=== PATIENT | female | born 1985 | race Caucasian/White ===

== ENCOUNTER 2016-11-08 17:30 | Emergency (ER) | payer MEDICAID ==
[~2016-11-08] VITALS: Ht 154.9 cm; Wt 65.0 kg
[~2016-11-08 17:30] MED LIST: LEVO1IUD4; SERT-129 PO
[2016-11-08 17:32] VITALS: BP 152/89; PULSE 74; RESP 14; TEMP 98; O2SAT 97
--- NOTE | 2016-11-08 17:50 | PD ---
Physical Exam Date Seen by Provider: Nov 08, 2016 Time Seen by Provider: 17:47 Narrative 31 YOWF C/O VAG D/C AND L FLANK PAIN/SWOLLEN. ? PROBLEM WITH HER IUD VSS. AWAITING BED PLACEMENT Data Data Last Documented VS Vital Signs Date Time Temp Pulse Resp B/P Pulse Ox O2 Delivery O2 Flow Rate FiO2 11/08/16 17:32 98.0 74 14 152/89 97 Orders Urinalysis - C+S If Indicated (11/08/16 17:44) Ed Urine Pregnancytest Poc (11/08/16 17:44) [facility] Medical Record Reviewed: Yes Supervised Visit with HI: Yes Jcarlos Craven Nov 08, 2016 17:50
[2016-11-08 18:13] LABS: BACTERIA, URINE RARE /hpf; BLOOD, URINE NEG (NEG); COMMENT (UR) CULT NOT INDICATED; CULTURE IF INDICATED CULT NOT INDICATED; GLUCOSE,URINE NEG (NEG); KETONE, URINE NEG (NEG); NITRITE,URINE NEG (NEG); SQUAMOUS EPITHELIAL CELL URINE 4 /hpf (0-5); URINE COLOR LIGHT-YELLOW (YELLW/STRAW)
[2016-11-08] MEDS ORDERED: ACETAMINOPHEN/HYDROcodone 325 MG/5 MG TAB PO ONE (19:00)
[2016-11-08] MEDS ORDERED: CARDCAP2 PO (19:10)
--- NOTE | 2016-11-08 19:45 | RADRPT ---
EXAM DATE/TIME: 11/08/2016 19:21 [place] COMPARISON: No previous studies available for comparison. INDICATIONS : Left flank pain starting today; radiating to lower back. ORAL CONTRAST: No oral contrast ingested. RADIATION DOSE: 6.70 CTDIvol (mGy) MEDICAL HISTORY : Renal calculi. Renal infection. SURGICAL HISTORY : section. ENCOUNTER: Initial ACUITY: 1 day PAIN SCALE: 6/10 LOCATION: Left flank Abdomen/pelvis TECHNIQUE: Volumetric scanning of the abdomen and pelvis was performed. Using automated exposure control and ad justment of the mA and/or kV according to patient size, radiation dose was kept as low as reasonably achievable to obtain optimal diagnostic quality images. FINDINGS: The kidneys are symmetric in size. No stones or hydronephrosis seen on the right side. There is a s olitary nonobstructing stone lower pole calyx on the left side measuring 2 mm. No calcifications helio ng the course of either ureter. Urinary bladder margins are smooth. No calcifications within the bon men of urinary bladder. No dilated loops of small large bowel. No calcified gallstones. There is, however, a 1.3 cm rounded lucency within the lumen of the gallbladder which may represent a noncalcified gallstone. T-shaped IUD in place. No evidence of free fluid in the pelvis. Inguinal region is unremarkable. The visual ized lower lungs are clear. Osseous structures are grossly intact. CONCLUSION: 1. 2 mm nonobstructing calcified stone lower pole of the left side. 2. 1.3 cm noncalcified round lesion within the lumen of the gallbladder may represent a noncalcified stone. Yan Benson MD on November 08, 2016 at 19:40 Board Certified Radiologist. This report was verified electronically.
--- NOTE | 2016-11-08 19:54 | PD ---
HPI Chief Complaint: Income Tax Consultant Problem/Complaint Time Seen by Provider: 19:50 Travel History International Travel<30 days: No Contact w/Intl Traveler<30days: No Traveled to known affect area: No History of Present Illness HPI 31-year-old female that presents to the ED for evaluation of left flank pain and possible vaginal issue. Per patient she has an IUD. Per patient she has had no issues other than some discharge since having the IUD and today she woke up with left flank pain. Per patient the pain is mostly in the left lower quadrant of the abdomen as well as to the flank on the kidneys. She does have a history of kidney stones. She states that she be having the chills for the past couple of days. Denies any bleeding. Per patient this possibility of but she is not sure. She states that she is not sure it is related to the IUD, cyst, ectopic , kidney stone or urinary tract infection. On examination she is somewhat anxious. Pain is 5 out of 10. Nothing makes it better or worse. Per patient he comes and goes. She denies previous STD. She has not seen anybody for this. She has no allergies to medication. She denies any nausea or vomiting. No urinary or bowel movement issues. PFSH Past Medical History Hx Anticoagulant Therapy: No Bipolar Disorder: Yes Depression: Yes Cardiovascular Problems: No Chemotherapy: No Cerebrovascular Accident: No Diabetes: No Diminished Hearing: No Gestational Age in Weeks: 24 Headaches: Yes Kidney Stones: Yes Psychiatric: Yes (BIPOLAR, PTSD, MANIC DEPRESSIVE DO) Respiratory: No Migraines: Yes ?: Unknown Menopausal: No : 4 Para: 3 : 1 Past Surgical History Section: Yes Gynecologic Surgery: Yes ( X 2) Social History Alcohol Use: No Tobacco Use: Yes (smokes a quarter of a pack per day) Substance Use: No (OPIATES; COCAINE (LAST USED 03/31/12)) Allergies-Medications (Allergen,Severity, Reaction): Coded Allergies: No Known Allergies (Unverified , 11/08/16) Reported Meds & Prescriptions Reported Meds & Active Scripts Active Metronidazole 500 Mg Tab 500 Mg PO BID [address] (Diclofenac Sodium) 75 Mg Tabdr 75 Mg PO BID PRN Sertraline (Sertraline HCl) 100 Mg Tab 100 Mg PO DAILY Reported Daily Multivitamin (Multiple Vitamins W/ Minerals) 1 Cap Cap 1 Tab PO DAILY Kyleena (Levonorgestrel (Iud)) 19.5 Mg Iud 1 Review of Systems Except as stated in HPI: all other systems reviewed are Neg Physical Exam Narrative GENERAL: SKIN: Warm and dry. HEAD: Atraumatic. Normocephalic. EYES: Pupils equal and round. No scleral icterus. No injection or drainage. ENT: No nasal bleeding or discharge. Mucous membranes pink and moist. Tongue is midline. No uvula deviation. NECK: Trachea midline. No JVD. CARDIOVASCULAR: Regular rate and rhythm. No murmurs, S3, S4. RESPIRATORY: No accessory muscle use. Clear to auscultation. Breath sounds equal bilaterally. GASTROINTESTINAL: Abdomen soft, non-tender, nondistended. Hepatic and splenic margins not palpable. MUSCULOSKELETAL: Extremities without clubbing, cyanosis, or edema. No obvious deformities. Full range of motion of the upper and lower extremities bilaterally. 2+ pulses bilaterally. NEUROLOGICAL: Awake and alert. No obvious cranial nerve deficits. Motor grossly within normal limits. Five out of 5 muscle strength in the arms and legs. Normal speech. PSYCHIATRIC: Appropriate mood and affect; insight and judgment normal. Data Data Last Documented VS Vital Signs Date Time Temp Pulse Resp B/P Pulse Ox O2 Delivery O2 Flow Rate FiO2 11/08/16 17:32 98.0 74 14 152/89 97 Orders Urinalysis - C+S If Indicated (11/08/16 17:44) Ed Urine Pregnancytest Poc (11/08/16 17:44) Gc And Chlamydia Pcr (11/08/16 18:48) Wet Prep Profile (11/08/16 18:48) Ct Abd/Pel W/O Iv Contrast (11/08/16 ) Acetamin-Hydrocod 325-5 Mg ([place] 5-325 (11/08/16 19:00) Metronidazole (Flagyl) (11/08/16 21:00) Labs Laboratory Tests Test 11/08/16 11/08/16 17:45 20:17 Urine Color LIGHT-YELLOW Urine Turbidity HAZY Urine pH 7.0 Urine Specific [place] 1.005 Urine Protein NEG mg/dL Urine Glucose (UA) NEG mg/dL Urine Ketones NEG mg/dL Urine Occult Blood NEG Urine Nitrite NEG Urine Bilirubin NEG Urine Urobilinogen LESS THAN 2.0 MG/DL Urine Leukocyte Esterase TRACE Urine RBC 2 /hpf Urine WBC 4 /hpf Urine Squamous Epithelial 4 /hpf Cells Urine Bacteria RARE /hpf Microscopic Urinalysis Comment CULT NOT INDICATED Clue Cells (Wet Prep) PRESENT Vaginal Trichomonas (Wet Prep) NONE SEEN Vaginal Yeast (Wet Prep) NONE SEEN MDM Medical Decision Making Medical Screen Exam Complete: Yes Emergency Medical Condition: Yes Medical Record Reviewed: Yes Interpretation(s) Last Impressions Abdomen/Pelvis CT 11/08/16 0000 Signed Impressions: Service Date/Time: Tuesday, November 08, 2016 19:21 - CONCLUSION: 1. 2 mm nonobstructing calcified stone lower pole of the left side. 2. 1.3 cm noncalcified round lesion within the lumen of the gallbladder may represent a noncalcified stone. Yan Benson MD UA negative Wet prep positive for clue cells Differential Diagnosis versus flank pain versus STD versus vaginitis versus vaginal discharge versus UTI versus kidney stone Narrative Course 31-year-old female that presents to the ED for evaluation of left flank pain. Patient was properly examined and was found to have signs and symptoms of unclear etiology. Recommendation is for labs and imaging. Labs and imaging show positive for clue cells as well as her left kidney stone but no sign of ureterolithiasis. Patient also has what appears to be possible gallstone. At this time I do recommend further treatment for this other than for the bacterial vaginosis. I will start patient on Flagyl. Patient was given 1 dose here and given prescription for Flagyl in the For the pain. Patient was told to drink plenty of fluids. Follow up closely with PCP. Avoid intercourse for at least 2 weeks until better. See ED worsening symptoms. Patient agrees with plan. All questions were answered to the best of my ability. Diagnosis Primary Impression: BV (bacterial vaginosis) Patient Instructions: General Instructions Additional Instructions: Take medication as prescribed. Follow-up with PCP. Drinking plenty of fluids. No sex for at least 2 weeks. See ED worsening symptoms. Med/Other Pt SpecificInfo: Prescription(s) given Scripts Metronidazole 500 Mg [id number] Mg PO BID 7 Days Ref 0 Prov:Courtney Denis MD 11/08/[address] 75 Mg Tabdr75 Mg PO BID PRN (PAIN SCALE 1 TO 10) #20 TAB Prov:Courtney Denis MD 4/4/17 Disposition: 01 DISCHARGE HOME Condition: Stable Mateo Mullins Nov 08, 2016 19:54
[2016-11-08 20:07] VITALS: RESP 14
[2016-11-08] MEDS ORDERED: METR500T10 PO (20:49)
[2016-11-08] MEDS ORDERED: DICL75TA PO (20:49)
[2016-11-08] MEDS ORDERED: metroNIDAZOLE 500 MG TAB PO ONE (21:00)
[2016-11-08 23:13] LABS: CHLAMYDIA PCR NOT DETECTED (NOT DETECT); NEISSERIA PCR NOT DETECTED (NOT DETECT)
== END 2016-11-08 21:27 | disposition home or self-care (01) ==
LOC: NEPC 17:30
DX: N76.0 Acute vaginitis (principal)
CPT/HCPCS: 74176; 81001; 84703; 87210; 87491; 87591

== ENCOUNTER 2017-08-03 20:12 | Emergency (ER) | payer MEDICAID, OTHER ==
[~2017-08-03] VITALS: Ht 154.9 cm; Wt 60.0 kg
[~2017-08-03 20:12] MED LIST changes: +CARDCAP2 PO; +DICL75TA PO; +METR1TAB76 PO
[2017-08-03 20:14] VITALS: PULSE 97; RESP 16; TEMP 100; O2SAT 97
[2017-08-03] MEDS ORDERED: LEVO1IUD4 I-UTERINE (20:23)
[2017-08-03] MEDS ORDERED: OSEL75 PO (20:40)
--- NOTE | 2017-08-03 20:41 | PD ---
HPI Chief Complaint: ENT Complaint Time Seen by Provider: 20:27 Travel History International Travel<30 days: No Contact w/Intl Traveler<30days: No Traveled to known affect area: No History of Present Illness HPI 31-year-old female here here with fever, body aches, sore throat, cough X 1 day. No sick contacts at home. No foreign travel. Symptom severity is moderate. No aggravating or alleviating factors. PFSH Past Medical History Medical History: Denies Significant Hx Hx Anticoagulant Therapy: No Bipolar Disorder: Yes Depression: Yes Cardiovascular Problems: No Chemotherapy: No Cerebrovascular Accident: No Diabetes: No Diminished Hearing: No Gestational Age in Weeks: 24 Headaches: Yes Kidney Stones: Yes Psychiatric: Yes (BIPOLAR, PTSD, MANIC DEPRESSIVE DO) Respiratory: No Migraines: Yes Tetanus Vaccination: < 5 Years Influenza Vaccination: No ?: Not LMP: 08/01/17 Menopausal: No : 4 Para: 3 : 1 Past Surgical History Section: Yes Gynecologic Surgery: Yes ( X 2) Social History Alcohol Use: No Tobacco Use: Yes ("3 cigs a day") Substance Use: No (OPIATES; COCAINE (LAST USED 03/31/12)) Allergies-Medications (Allergen,Severity, Reaction): Coded Allergies: No Known Allergies (Unverified Adverse Reaction, Unknown, 08/03/17) Reported Meds & Prescriptions Reported Meds & Active Scripts Active Reported Kyleena (Levonorgestrel (IUD)) 17.5 Mcg/24 Hour (5 Years) Iud 1 Ea I-UTERINE ONCE Review of Systems Except as stated in HPI: all other systems reviewed are Neg General / Constitutional: Positive: Fever HENT: Positive: Sore Throat, Congestion Cardiovascular: No: Chest Pain or Discomfort Respiratory: Positive: Cough Musculoskeletal: Positive: Myalgias Physical Exam Narrative GENERAL: Alert female. Nontoxic appearing. SKIN: Warm and dry. No rash HEAD: Normocephalic. EYES: No scleral icterus. No injection or drainage. THROAT: Mild pharyngeal erythema, no tonsillar hypertrophy or exudate. NECK: Supple, trachea midline. No JVD or lymphadenopathy. No meningismus. CARDIOVASCULAR: Regular rate and rhythm without murmurs, gallops, or rubs. RESPIRATORY: Breath sounds equal bilaterally. No accessory muscle use. GASTROINTESTINAL: Abdomen soft, non-tender, nondistended. MUSCULOSKELETAL: No cyanosis, or edema. BACK: Nontender without obvious deformity. No CVA tenderness. Data Data Last Documented VS Vital Signs Date Time Temp Pulse Resp B/P (MAP) Pulse Ox O2 Delivery O2 Flow Rate FiO2 08/03/17 20:14 100.0 97 16 97 [facility] Medical Decision Making Medical Screen Exam Complete: Yes Emergency Medical Condition: Yes Differential Diagnosis Influenza, strep pharyngitis, viral illness Narrative Course 31-year-old female here with flulike illness. Her vital signs are stable. She is nontoxic appearing. Patient refused influenza screening. I strongly suspect flu. Patient be treated with Tamiflu. Diagnosis Primary Impression: Viral illness Referrals: [facility] Additional Instructions: Take [id number] ibuprofen 800 mg every 6 hours as needed for pain and fever. Rest and stay well hydrated. Scripts Oseltamivir (Tamiflu) 75 Mg Cap 75 MG PO BID for Mgmt Viral Infection for 5 Days, #10 CAP 0 Refills Prov: Melody Jenkins 08/03/17 Disposition: 01 DISCHARGE HOME Condition: Stable Melody Jenkins Aug 03, 2017 20:41
== END 2017-08-03 20:50 | disposition home or self-care (01) ==
LOC: PHEFT 20:12
DX: B34.9 Viral infection, unspecified (principal); Z72.0 Tobacco use
CPT/HCPCS: 99283

== ENCOUNTER 2017-08-07 02:52 | Emergency (ER) | payer OTHER ==
[~2017-08-07] VITALS: Ht 154.9 cm; Wt 55.0 kg
[~2017-08-07 02:52] MED LIST changes: +LEVO1IUD4 I-UTERINE; +OSEL75 PO
[2017-08-07 03:06] VITALS: BP 123/60; PULSE 100; RESP 20; TEMP 99.5; O2SAT 98
== END 2017-08-07 04:24 | disposition left against medical advice (07) ==
LOC: PHED 02:52
DX: R07.0 Pain in throat (principal); Z53.21 Procedure and treatment not carried out due to patient leaving prior to being seen by health care provider
CPT/HCPCS: 99281